=== PATIENT | female | born 1945 | race Caucasian/White ===

== ENCOUNTER → 2017-01-01 | Outpatient (CLI) | payer MEDICARE, OTHER ==
--- NOTE | 2017-01-01 11:57 | FL ---
EXAMINATION TYPE: FL barium swallow DATE OF EXAM: 01/01/2017 CLINICAL HISTORY: History of dysphasia on and off for last 2 years since dentures were placed. Episod ic vomiting and epigastric pain or reflux per patient. TECHNIQUE: A double contrast esophagram is performed utilizing air and barium. A total of 72 second s of fluoroscopic time was utilized during procedure. COMPARISON: None FINDINGS: The esophagus shows satisfactory motility and emptying into the stomach. No suspicious stri cture is seen. A sliding-type small to moderate-sized hiatal hernia is present seen best when patient drank in prone position. No worrisome intraluminal mass is identified. There is persistent widemouth but nondilated outpouching or diverticulum along right posterior lateral margin of the distal esopha thais likely of clinical and significance. No significant gastroesophageal reflux was seen during real time performance of this study. IMPRESSION: Small to moderate-sized sliding-type hiatal hernia. Incidental small distal esophageal di verticulum.
== END | disposition home or self-care (01) ==
LOC: RADFLWHC 10:43
PROVIDERS: ATTEND Internal Medicine
DX: K44.9 Diaphragmatic hernia without obstruction or gangrene (principal)
CPT/HCPCS: 74220